=== PATIENT | female | born 1955 | race Caucasian/White ===

== ENCOUNTER → 2017-02-15 | Outpatient (CLI) | payer OTHER ==
--- NOTE | 2017-02-20 18:36 | RADIOLOGY REPORT PS360 ---
DIG MAMM-SCREEN JANA W/CAD CAD Screening ORDERING PHYSICIAN : Marin Jacobs MD PATIENT AGE: 61 years GENDER: Female COMPARISON: Previous mammograms: January 2016, September. Also film screen studies from January 2008 utilized INDICATION: Routine screening 61-year-old with no hormones no new complaints noncontributory family history TECHNIQUE: Large breasts. Standard CC & MLO images were obtained. . Additional MLO views of the I inferior breast performed along with a cleavage view both breast and axillary cc left breast R2 CAD reviewed. FINDINGS: Moderate scattered inhomogeneous from bladder elements bilateral . Mild stable appearing asymmetry RIGHT BREAST: Benign-appearing, secretory calcifications right breast retroareolar region similar to prior study. Faint arterial calcifications. Skin moles with markers. Inhomogeneous planar tissue is similar to previous studies No new findings right breast LEFT BREAST: Area of density at the medial left breast is been present on old studies dating back to 2007 with no significant change. Overall architecture appears similar to previous studies with slight progressive fatty replacement over time. No significant new findings. Follow-up left mammogram 1 year recommended IMPRESSION: No significant change since previous studies Moderate inhomogeneous breast with moderate asymmetry but overall fairly stable . Follow-up in one year recommended & should be encouraged. BI-RADS CATEGORY: 2_Benign RECOMMENDED FOLLOWUP: 12M 12 MONTH FOLLOW-UP (A letter has been sent to the patient regarding results of the study.)
== END ==
LOC: RAD 16:47
DX: Z12.31 Encounter for screening mammogram for malignant neoplasm of breast (principal)
CPT/HCPCS: G0202